=== PATIENT | male | born 1965 | race Caucasian/White ===

== ENCOUNTER → 2019-09-22 09:03 | Outpatient (BNVA) | payer BC, SELFPAY | PROVIDERS: PCP Nurse Practitioner; Visit Provider Nurse Practitioner | DX: I10 Essential (primary) hypertension (principal); F41.1 Generalized anxiety disorder; E55.9 Vitamin D deficiency, unspecified; E78.2 Mixed hyperlipidemia; J30.1 Allergic rhinitis due to pollen | CPT/HCPCS: 80053; 80061; 81000; 82306; 84403; 85025 ==

== ENCOUNTER → 2020-12-11 09:13 | Outpatient (BNVA) | payer BC, SELFPAY | PROVIDERS: PCP Nurse Practitioner; Visit Provider Nurse Practitioner Family | DX: Z01.812 Encounter for preprocedural laboratory examination (principal); Z13.0 Encounter for screening for diseases of the blood and blood-forming organs and certain disorders involving the immune mechanism; Z12.5 Encounter for screening for malignant neoplasm of prostate; I10 Essential (primary) hypertension; E78.2 Mixed hyperlipidemia; E55.9 Vitamin D deficiency, unspecified; F41.1 Generalized anxiety disorder; M17.12 Unilateral primary osteoarthritis, left knee | CPT/HCPCS: 80053; 80061; 82040; 82306; 83036; 84153; 84443; 85025 ==

== ENCOUNTER 2021-04-24 12:17 | Outpatient (CLI) | payer BC, SELFPAY ==
[2021-04-24 12:29] VITALS: BP 142/76; BP 154/73; PULSE 76; PULSE 89; RESP 20; TEMP 35.8; TEMP 36.8; O2SAT 97; O2SAT 99; BMI 27.1
== END 2021-04-24 12:18 | disposition home or self-care (01) ==
PROVIDERS: PCP Nurse Practitioner; Visit Provider Nurse Practitioner Family
DX: U07.1 COVID-19 (principal)
CPT/HCPCS: 96365

== ENCOUNTER 2021-08-23 06:00 | Outpatient (RCR) | payer BC, SELFPAY | END 2021-09-14 23:59 | disposition home or self-care (01) | LOC: TPT 06:00 | PROVIDERS: PCP Nurse Practitioner; Referring Provider Physician Assistant Surgical; Visit Provider Physician Assistant Surgical | DX: Z47.1 Aftercare following joint replacement surgery (principal); Z96.652 Presence of left artificial knee joint | CPT/HCPCS: 97110; 97140; 97162 ==

== ENCOUNTER 2021-09-15 06:00 | Outpatient (RCR) | payer BC, SELFPAY | END 2021-10-15 23:59 | disposition home or self-care (01) | LOC: TPT 06:00 | PROVIDERS: PCP Nurse Practitioner; Referring Provider Physician Assistant Surgical; Visit Provider Physician Assistant Surgical | DX: Z47.1 Aftercare following joint replacement surgery (principal); Z96.652 Presence of left artificial knee joint | CPT/HCPCS: 97110 ==